=== PATIENT | male | born 1980 ===

== ENCOUNTER 2018-02-10 11:23 | Observation (INO) | payer BC ==
[2018-02-10] MEDS ORDERED: Sodium Chloride 0.9% 2.5 ML Syringe FLUSH PRN (11:34)
[2018-02-10] MEDS ORDERED: Sodium Chloride 0.9% 10 ML Syringe FLUSH PRN (11:34)
--- NOTE | 2018-02-10 11:43 | EDM.PDOC ---
ED HPI GENERAL MEDICAL PROBLEM - General Chief Complaint: Neuro Symptoms/Deficits Stated Complaint: TALK TO NURSE ABOUT ISSUES Time Seen by Provider: 02/10/18 11:27 - History of Present Illness INITIAL COMMENTS - FREE TEXT/NARRATIVE: HISTORY AND PHYSICAL: History of present illness: Patient is a 37-year-old white male who is 3 years status post craniotomy for a malignant neoplasm for which he received chemotherapy and radiation states he has been cancer free since who comes in now with progressive symptoms in the form of numbness and occasional difficulty concentrating and confusion he had an episode today per his brother of chest discomfort and shortness of breath patient is vague about the circumstances of this episode and denies any chest pain or shortness of breath now but does still complain of the paresthesia on his right side which is been there for months and for which he is scheduled to have an MRI this week. Review of systems: As per history of present illness and below otherwise all systems reviewed and negative. Past medical history: As per history of present illness and as reviewed below otherwise noncontributory. Surgical history: As per history of present illness and as reviewed below otherwise noncontributory. Social history: No reported history of drug or alcohol abuse. Family history: As per history of present illness and as reviewed below otherwise noncontributory. Physical exam: HEENT: Atraumatic, normocephalic, pupils reactive, negative for conjunctival pallor or scleral icterus, mucous membranes moist, throat clear, neck supple, nontender, trachea midline. Lungs: Clear to auscultation, breath sounds equal bilaterally, chest nontender. Heart: S1S2, regular, negative for clicks, rubs, or JVD. Abdomen: Soft, nondistended, nontender. Negative for masses or hepatosplenomegaly. Negative for costovertebral tenderness. Pelvis: Stable nontender. Genitourinary: Deferred. Rectal: Deferred. Extremities: Atraumatic, negative for cords or calf pain. Neurovascular unremarkable. Neuro: Awake, alert, oriented. Cranial nerves II through XII unremarkable. Cerebellum unremarkable. Motor and sensory unremarkable throughout. Exam nonfocal. Diagnostics: CBC CMP troponin PT/INR urine drug screen EtOH chest x-ray EKG CT brain Therapeutics: IV O2 monitor Impression: #1 atypical chest pain #2 history of intracranial neoplasm with subsequent craniotomy radiation/chemotherapy #3 right sided hemiparesthesia 2-3 months etiology to be determined #4 history of intermittent mental status changes Definitive disposition and diagnosis as appropriate pending reevaluation and review of above. - Related Data Allergies Allergy/AdvReac Type Severity Reaction Status Date / Time No Known Allergies Allergy Verified 09/10/13 10:10 Home Meds: Home Meds Amphetamine Sulfate [Evekeo] 5 mg DAILY 02/10/18 [History] Citalopram [Citalopram HBr] 20 mg DAILY 02/10/18 [History] ED ROS GENERAL - Review of Systems Review Of Systems: ROS reveals no pertinent complaints other than HPI. ED EXAM, GENERAL - Physical Exam Exam: See Below (See dictation) Course - Vital Signs Last Recorded V/S: Last Vital Signs Temp 36.5 C 02/10/18 12:45 Pulse 64 02/10/18 12:45 Resp 14 02/10/18 12:45 BP 108/62 02/10/18 12:45 Pulse Ox 96 02/10/18 12:45 - Orders/Labs/Meds Orders: Active Orders 24 hr Category Date Time Status Cardiac Monitoring [RC] . DIRECTED Care 02/10/18 11:33 Active EKG Documentation Completion [RC] STAT Care 02/10/18 11:33 Active Chest 1V Frontal [CR] Stat Exams 02/10/18 11:34 Taken Head wo Cont [CT] Stat Exams 02/10/18 11:34 Taken DRUG SCREEN, URINE [URCHEM] Stat Lab 02/10/18 11:46 Ordered UA W/MICROSCOPIC [URIN] Stat Lab 02/10/18 11:46 Ordered Sodium Chloride 0.9% [Normal Saline] 1,000 ml Med 02/10/18 11:45 Active IV STAT Sodium Chloride 0.9% [Saline Flush] Med 02/10/18 11:34 Active 10 ml FLUSH ASDIRECTED PRN Sodium Chloride 0.9% [Saline Flush] Med 02/10/18 11:34 Active 2.5 ml FLUSH ASDIRECTED PRN Saline Lock Insert [OM.PC] Stat Oth 02/10/18 11:33 Ordered Medication Orders Sodium Chloride (Normal Saline) 1,000 mls @ 125 mls/hr IV STAT JAGDEEP Last Admin: 02/10/18 11:57 Dose: 125 mls/hr Sodium Chloride (Saline Flush) 10 ml FLUSH ASDIRECTED PRN PRN Reason: Keep Vein Open Sodium Chloride (Saline Flush) 2.5 ml FLUSH ASDIRECTED PRN PRN Reason: Keep Vein Open Labs: Laboratory Tests 02/10/18 02/10/18 02/10/18 Range/Units 11:46 11:46 11:46 WBC 5.59 (4.0-11.0) K/uL RBC 5.04 (4.50-5.90) M/uL Hgb 16.0 (13.0-17.0) g/dL Hct 44.7 (38.0-50.0) % MCV 88.7 (80.0-98.0) fL MCH 31.7 (27.0-32.0) pg MCHC 35.8 (31.0-37.0) g/dL RDW Std Deviation 39.4 (28.0-62.0) fl RDW Coeff of Paolo 12 (11.0-15.0) % Plt Count 277 (150-400) K/uL MPV 9.80 (7.40-12.00) fL Neut % (Auto) 64.0 (48.0-80.0) % Lymph % (Auto) 24.2 (16.0-40.0) % [place] % (Auto) 9.5 (0.0-15.0) % Eos % (Auto) 1.8 (0.0-7.0) % Baso % (Auto) 0.5 (0.0-1.5) % Neut # (Auto) 3.6 (1.4-5.7) K/uL Lymph # (Auto) 1.4 (0.6-2.4) K/uL [place] # (Auto) 0.5 (0.0-0.8) K/uL Eos # (Auto) 0.1 (0.0-0.7) K/uL Baso # (Auto) 0.0 (0.0-0.1) K/uL Nucleated RBC % 0.0 /100WBC Nucleated RBCs # 0 K/uL INR Sodium (136-148) mmol/L Potassium (3.5-5.1) mmol/L Chloride (98-107) mmol/L Carbon Dioxide (21.0-32.0) mmol/L BUN (7.0-18.0) mg/dL Creatinine (0.8-1.3) mg/dL Est Cr Clr Drug Dosing Estimated GFR (MDRD) ml/min Glucose (74-106) mg/dL Calcium (8.5-10.1) mg/dL Total Bilirubin (0.2-1.0) mg/dL AST (15-37) IU/L ALT (14-63) IU/L Alkaline Phosphatase (46-116) U/L Troponin I (0.000-0.056) ng/mL Total Protein (6.4-8.2) g/dL Albumin (3.4-5.0) g/dL Globulin (2.0-3.5) g/dL Albumin/Globulin Ratio (1.3-2.8) Urine Color YELLOW Urine Appearance CLEAR Urine pH 7.0 (5.0-8.0) Ur Specific [place] 1.020 (1.001-1.035) Urine Protein NEGATIVE (NEGATIVE) mg/dL Urine Glucose (UA) NEGATIVE (NEGATIVE) mg/dL Urine Ketones NEGATIVE (NEGATIVE) mg/dL Urine Occult Blood NEGATIVE (NEGATIVE) Urine Nitrite NEGATIVE (NEGATIVE) Urine Bilirubin NEGATIVE (NEGATIVE) Urine Urobilinogen 0.2 (<2.0) EU/dL Ur Leukocyte Esterase NEGATIVE (NEGATIVE) Urine RBC 0-1 (0-2/HPF) Urine WBC 0-1 (0-5/HPF) Ur Epithelial Cells RARE (NONE-FEW) Urine Bacteria RARE (NEGATIVE) Urine Mucus LIGHT (NONE-MOD) Urine Opiates Screen NEGATIVE (NEGATIVE) Ur Oxycodone Screen NEGATIVE (NEGATIVE) Urine Methadone Screen NEGATIVE (NEGATIVE) Ur Barbiturates Screen NEGATIVE (NEGATIVE) Ur Phencyclidine Scrn NEGATIVE (NEGATIVE) Ur Amphetamine Screen NEGATIVE (NEGATIVE) U Methamphetamines Scrn NEGATIVE (NEGATIVE) U Benzodiazepines Scrn NEGATIVE (NEGATIVE) U Cocaine Metab Screen NEGATIVE (NEGATIVE) U Marijuana (THC) Screen NEGATIVE (NEGATIVE) Ethyl Alcohol mg/dL 02/10/18 02/10/18 Range/Units 11:46 11:46 WBC (4.0-11.0) K/uL RBC (4.50-5.90) M/uL Hgb (13.0-17.0) g/dL Hct (38.0-50.0) % MCV (80.0-98.0) fL MCH (27.0-32.0) pg MCHC (31.0-37.0) g/dL RDW Std Deviation (28.0-62.0) fl RDW Coeff of Paolo (11.0-15.0) % Plt Count (150-400) K/uL MPV (7.40-12.00) fL Neut % (Auto) (48.0-80.0) % Lymph % (Auto) (16.0-40.0) % [place] % (Auto) (0.0-15.0) % Eos % (Auto) (0.0-7.0) % Baso % (Auto) (0.0-1.5) % Neut # (Auto) (1.4-5.7) K/uL Lymph # (Auto) (0.6-2.4) K/uL [place] # (Auto) (0.0-0.8) K/uL Eos # (Auto) (0.0-0.7) K/uL Baso # (Auto) (0.0-0.1) K/uL Nucleated RBC % /100WBC Nucleated RBCs # K/uL INR 1.00 Sodium 139 (136-148) mmol/L Potassium 4.3 (3.5-5.1) mmol/L Chloride 103 (98-107) mmol/L Carbon Dioxide 26.8 (21.0-32.0) mmol/L BUN 12 (7.0-18.0) mg/dL Creatinine 1.0 (0.8-1.3) mg/dL Est Cr Clr Drug Dosing TNP Estimated GFR (MDRD) > 60.0 ml/min Glucose 106 (74-106) mg/dL Calcium 9.1 (8.5-10.1) mg/dL Total Bilirubin 1.0 (0.2-1.0) mg/dL AST 19 (15-37) IU/L ALT 44 (14-63) IU/L Alkaline Phosphatase 102 (46-116) U/L Troponin I < 0.050 (0.000-0.056) ng/mL Total Protein 7.6 (6.4-8.2) g/dL Albumin 4.1 (3.4-5.0) g/dL Globulin 3.5 (2.0-3.5) g/dL Albumin/Globulin Ratio 1.2 L (1.3-2.8) Urine Color Urine Appearance Urine pH (5.0-8.0) Ur Specific [place] (1.001-1.035) Urine Protein (NEGATIVE) mg/dL Urine Glucose (UA) (NEGATIVE) mg/dL Urine Ketones (NEGATIVE) mg/dL Urine Occult Blood (NEGATIVE) Urine Nitrite (NEGATIVE) Urine Bilirubin (NEGATIVE) Urine Urobilinogen (<2.0) EU/dL Ur Leukocyte Esterase (NEGATIVE) Urine RBC (0-2/HPF) Urine WBC (0-5/HPF) Ur Epithelial Cells (NONE-FEW) Urine Bacteria (NEGATIVE) Urine Mucus (NONE-MOD) Urine Opiates Screen (NEGATIVE) Ur Oxycodone Screen (NEGATIVE) Urine Methadone Screen (NEGATIVE) Ur Barbiturates Screen (NEGATIVE) Ur Phencyclidine Scrn (NEGATIVE) Ur Amphetamine Screen (NEGATIVE) U Methamphetamines Scrn (NEGATIVE) U Benzodiazepines Scrn (NEGATIVE) U Cocaine Metab Screen (NEGATIVE) U Marijuana (THC) Screen (NEGATIVE) Ethyl Alcohol <3 mg/dL Meds: Medications Generic Name Dose Route Start Last Admin Trade Name Freq PRN Reason Stop Dose Admin Sodium Chloride 1,000 mls @ 125 mls/hr 02/10/18 11:45 02/10/18 11:57 Normal Saline IV 125 mls/hr STAT JAGDEEP Administration Sodium Chloride 10 ml 02/10/18 11:34 Saline Flush FLUSH ASDIRECTED PRN Keep Vein Open Sodium Chloride 2.5 ml 02/10/18 11:34 Saline Flush FLUSH ASDIRECTED PRN Keep Vein Open Departure - Departure Time of Disposition: 13:12 Disposition: Refer to Observation Condition: Good Clinical Impression: Atypical chest pain, Paresthesia - Discharge Information Referrals: PCP,None [Primary Care Provider] - Forms: ED Department Discharge - My Orders Last 24 Hours: My Active Orders 02/10/18 11:33 Cardiac Monitoring [RC] . DIRECTED EKG Documentation Completion [RC] STAT Saline Lock Insert [OM.PC] Stat 02/10/18 11:34 Chest 1V Frontal [CR] Stat Head wo Cont [CT] Stat Sodium Chloride 0.9% [Saline Flush] 10 ml FLUSH ASDIRECTED PRN Sodium Chloride 0.9% [Saline Flush] 2.5 ml FLUSH ASDIRECTED PRN 02/10/18 11:45 Sodium Chloride 0.9% [Normal Saline] 1,000 ml IV STAT 02/10/18 11:46 DRUG SCREEN, URINE [URCHEM] Stat UA W/MICROSCOPIC [URIN] Stat - Assessment/Plan Last 24 Hours: My Active Orders 02/10/18 11:33 Cardiac Monitoring [RC] . DIRECTED EKG Documentation Completion [RC] STAT Saline Lock Insert [OM.PC] Stat 02/10/18 11:34 Chest 1V Frontal [CR] Stat Head wo Cont [CT] Stat Sodium Chloride 0.9% [Saline Flush] 10 ml FLUSH ASDIRECTED PRN Sodium Chloride 0.9% [Saline Flush] 2.5 ml FLUSH ASDIRECTED PRN 02/10/18 11:45 Sodium Chloride 0.9% [Normal Saline] 1,000 ml IV STAT 02/10/18 11:46 DRUG SCREEN, URINE [URCHEM] Stat UA W/MICROSCOPIC [URIN] Stat
[2018-02-10] MEDS ORDERED: Sodium Chloride 0.9% 1,000 ML IV SCH (11:45)
[2018-02-10 12:33] LABS: CHLORIDE,CL 103 mmol/L (98-107); SODIUM,NA 139 mmol/L (136-148)
--- NOTE | 2018-02-10 22:00 | PCM.HP ---
H&P History of Present Illness - General Date of Service: 02/10/18 Admit Problem/Dx: Admission Diagnosis/Problem Admission Diagnosis/Problem Atypical chest pain - History of Present Illness Initial Comments - Free Text/Narative: 37 yo male with pmh of craniotomy for malignant neoplasm s/p radiation and chemotherapy. PAtient states that since treatment he has had poor memory. The past week he has had numbness of the right arm and blurred vision. He is schedualed for a MRI of the brain next week for these symptoms. He is brought in by his brother today due to episode of chest pain and shortness of breath. CT of the head showed left frontal temporoparietal craniotomy with encephalomalacia in the left temporal lobe anteriorly. Vague low-density areas invovle the left internal capsule posteriorly, left thalamus and left midbrain. ED provider recommended observation for chest pain. Patient does not have any recollection of having chest pain and is unable to recall what happened during the time his brother said that he had chest pain. no pain Pain Score (Numeric/FACES): 0 - Related Data Allergies/Adverse Reactions: Allergies Allergy/AdvReac Type Severity Reaction Status Date / Time No Known Allergies Allergy Verified 02/10/18 14:02 Home Medications: Home Meds Amphetamine Sulfate [Evekeo] 5 mg DAILY 02/10/18 [History] Citalopram [Citalopram HBr] 20 mg DAILY 02/10/18 [History] Past Medical History HEENT History: Reports: Other (See Below) Other HEENT History: brain CA Cardiovascular History: Reports: None Respiratory History: Reports: None Gastrointestinal History: Reports: None Genitourinary History: Reports: None Musculoskeletal History: Reports: None Neurological History: Reports: Other (See Below) Other Neuro History: brain CA Psychiatric History: Reports: Depression Endocrine/Metabolic History: Reports: None Oncologic (Cancer) History: Reports: Brain Dermatologic History: Reports: None, Other (See Below) Other Dermatologic History: shingles 2015 to right side - Infectious Disease History Infectious Disease History: Reports: Chicken Pox, Shingles - Past Surgical History HEENT Surgical History: Reports: Tonsillectomy, Other (See Below) Other HEENT Surgeries/Procedures: brain tumor removal GI Surgical History: Reports: Hernia, Abdominal Oncologic Surgical History: Reports: Other (See Below) Other Oncologic Surgeries/Procedures: Brain tumor removal. Social & Family History - Family History Family Medical History: Noncontributory - Tobacco Use Smoking Status *Q: Current Every Day Smoker Years of Tobacco use: 20 Packs/Tins Daily: 2 Used Tobacco, but Quit: No Second Hand Smoke Exposure: No - Caffeine Use Caffeine Use: Reports: Coffee, Soda - Recreational Drug Use Recreational Drug Use: No H&P Review of Systems - Review of Systems: Review Of Systems: ROS reveals no pertinent complaints other than HPI. Exam - Exam Exam: See Below - Vital Signs Vital Signs: Last Vital Signs Temp 36.1 C 02/10/18 20:00 Pulse 74 02/10/18 20:00 Resp 18 02/10/18 20:00 BP 107/61 02/10/18 20:00 Pulse Ox 97 02/10/18 20:00 Weight: 90.718 kg - Exam General: Alert, Oriented HEENT: Conjunctiva Clear, Mucosa Moist & [place] Neck: Supple, Trachea Midline Lungs: Clear to Auscultation, Normal Respiratory Effort Cardiovascular: Regular Rate, Regular Rhythm GI/Abdominal Exam: Soft, Non-Tender Extremities: Non-Tender, No Pedal Edema Skin: Warm, Dry, Intact Neurological: Cranial Nerves Intact, Reflexes Equal Bilateral, Strength Equal Bilateral, Normal Speech, Normal Tone, Sensation Intact. No: Focal Deficit - Patient Data Lab Results Last 24 hrs: Laboratory Results - last 24 hr 02/10/18 02/10/18 02/10/18 Range/Units 11:46 11:46 11:46 WBC 5.59 (4.0-11.0) K/uL RBC 5.04 (4.50-5.90) M/uL Hgb 16.0 (13.0-17.0) g/dL Hct 44.7 (38.0-50.0) % MCV 88.7 (80.0-98.0) fL MCH 31.7 (27.0-32.0) pg MCHC 35.8 (31.0-37.0) g/dL RDW Std Deviation 39.4 (28.0-62.0) fl RDW Coeff of Paolo 12 (11.0-15.0) % Plt Count 277 (150-400) K/uL MPV 9.80 (7.40-12.00) fL Neut % (Auto) 64.0 (48.0-80.0) % Lymph % (Auto) 24.2 (16.0-40.0) % [place] % (Auto) 9.5 (0.0-15.0) % Eos % (Auto) 1.8 (0.0-7.0) % Baso % (Auto) 0.5 (0.0-1.5) % Neut # (Auto) 3.6 (1.4-5.7) K/uL Lymph # (Auto) 1.4 (0.6-2.4) K/uL [place] # (Auto) 0.5 (0.0-0.8) K/uL Eos # (Auto) 0.1 (0.0-0.7) K/uL Baso # (Auto) 0.0 (0.0-0.1) K/uL Nucleated RBC % 0.0 /100WBC Nucleated RBCs # 0 K/uL INR Sodium (136-148) mmol/L Potassium (3.5-5.1) mmol/L Chloride (98-107) mmol/L Carbon Dioxide (21.0-32.0) mmol/L BUN (7.0-18.0) mg/dL Creatinine (0.8-1.3) mg/dL Est Cr Clr Drug Dosing Estimated GFR (MDRD) ml/min Glucose (74-106) mg/dL Calcium (8.5-10.1) mg/dL Total Bilirubin (0.2-1.0) mg/dL AST (15-37) IU/L ALT (14-63) IU/L Alkaline Phosphatase (46-116) U/L Troponin I (0.000-0.056) ng/mL Total Protein (6.4-8.2) g/dL Albumin (3.4-5.0) g/dL Globulin (2.0-3.5) g/dL Albumin/Globulin Ratio (1.3-2.8) Urine Color YELLOW Urine Appearance CLEAR Urine pH 7.0 (5.0-8.0) Ur Specific [place] 1.020 (1.001-1.035) Urine Protein NEGATIVE (NEGATIVE) mg/dL Urine Glucose (UA) NEGATIVE (NEGATIVE) mg/dL Urine Ketones NEGATIVE (NEGATIVE) mg/dL Urine Occult Blood NEGATIVE (NEGATIVE) Urine Nitrite NEGATIVE (NEGATIVE) Urine Bilirubin NEGATIVE (NEGATIVE) Urine Urobilinogen 0.2 (<2.0) EU/dL Ur Leukocyte Esterase NEGATIVE (NEGATIVE) Urine RBC 0-1 (0-2/HPF) Urine WBC 0-1 (0-5/HPF) Ur Epithelial Cells RARE (NONE-FEW) Urine Bacteria RARE (NEGATIVE) Urine Mucus LIGHT (NONE-MOD) Urine Opiates Screen NEGATIVE (NEGATIVE) Ur Oxycodone Screen NEGATIVE (NEGATIVE) Urine Methadone Screen NEGATIVE (NEGATIVE) Ur Barbiturates Screen NEGATIVE (NEGATIVE) Ur Phencyclidine Scrn NEGATIVE (NEGATIVE) Ur Amphetamine Screen NEGATIVE (NEGATIVE) U Methamphetamines Scrn NEGATIVE (NEGATIVE) U Benzodiazepines Scrn NEGATIVE (NEGATIVE) U Cocaine Metab Screen NEGATIVE (NEGATIVE) U Marijuana (THC) Screen NEGATIVE (NEGATIVE) Ethyl Alcohol mg/dL 02/10/18 02/10/18 02/10/18 Range/Units 11:46 11:46 18:07 WBC (4.0-11.0) K/uL RBC (4.50-5.90) M/uL Hgb (13.0-17.0) g/dL Hct (38.0-50.0) % MCV (80.0-98.0) fL MCH (27.0-32.0) pg MCHC (31.0-37.0) g/dL RDW Std Deviation (28.0-62.0) fl RDW Coeff of [place] (11.0-15.0) % Plt Count (150-400) K/uL MPV (7.40-12.00) fL Neut % (Auto) (48.0-80.0) % Lymph % (Auto) (16.0-40.0) % [place] % (Auto) (0.0-15.0) % Eos % (Auto) (0.0-7.0) % Baso % (Auto) (0.0-1.5) % Neut # (Auto) (1.4-5.7) K/uL Lymph # (Auto) (0.6-2.4) K/uL [place] # (Auto) (0.0-0.8) K/uL Eos # (Auto) (0.0-0.7) K/uL Baso # (Auto) (0.0-0.1) K/uL Nucleated RBC % /100WBC Nucleated RBCs # K/uL INR 1.00 Sodium 139 (136-148) mmol/L Potassium 4.3 (3.5-5.1) mmol/L Chloride 103 (98-107) mmol/L Carbon Dioxide 26.8 (21.0-32.0) mmol/L BUN 12 (7.0-18.0) mg/dL Creatinine 1.0 (0.8-1.3) mg/dL Est Cr Clr Drug Dosing TNP Estimated GFR (MDRD) > 60.0 ml/min Glucose 106 (74-106) mg/dL Calcium 9.1 (8.5-10.1) mg/dL Total Bilirubin 1.0 (0.2-1.0) mg/dL AST 19 (15-37) IU/L ALT 44 (14-63) IU/L Alkaline Phosphatase 102 (46-116) U/L Troponin I < 0.050 < 0.050 (0.000-0.056) ng/mL Total Protein 7.6 (6.4-8.2) g/dL Albumin 4.1 (3.4-5.0) g/dL Globulin 3.5 (2.0-3.5) g/dL Albumin/Globulin Ratio 1.2 L (1.3-2.8) Urine Color Urine Appearance Urine pH (5.0-8.0) Ur Specific [place] (1.001-1.035) Urine Protein (NEGATIVE) mg/dL Urine Glucose (UA) (NEGATIVE) mg/dL Urine Ketones (NEGATIVE) mg/dL Urine Occult Blood (NEGATIVE) Urine Nitrite (NEGATIVE) Urine Bilirubin (NEGATIVE) Urine Urobilinogen (<2.0) EU/dL Ur Leukocyte Esterase (NEGATIVE) Urine RBC (0-2/HPF) Urine WBC (0-5/HPF) Ur Epithelial Cells (NONE-FEW) Urine Bacteria (NEGATIVE) Urine Mucus (NONE-MOD) Urine Opiates Screen (NEGATIVE) Ur Oxycodone Screen (NEGATIVE) Urine Methadone Screen (NEGATIVE) Ur Barbiturates Screen (NEGATIVE) Ur Phencyclidine Scrn (NEGATIVE) Ur Amphetamine Screen (NEGATIVE) U Methamphetamines Scrn (NEGATIVE) U Benzodiazepines Scrn (NEGATIVE) U Cocaine Metab Screen (NEGATIVE) U Marijuana (THC) Screen (NEGATIVE) Ethyl Alcohol <3 mg/dL Result Diagrams: 02/10/18 11:46 02/10/18 11:46 Problem List Initiated/Reviewed/Updated: Yes Orders Last 24hrs: Active Orders 24 hr Category Date Time Status Patient Status [ADT] Stat ADT 02/10/18 13:12 Active Cardiac Monitoring [RC] . DIRECTED Care 02/10/18 11:33 Active Telemetry Monitoring [Cardiac Monitoring] [RC] . Care 02/10/18 15:48 Active DIRECTED Regular Diet [DIET] Diet 02/10/18 Dinner Active Brain w Cont [MR] Routine Exams 02/10/18 21:50 Ordered Chest 1V Frontal [CR] Stat Exams 02/10/18 11:34 Taken Head wo Cont [CT] Stat Exams 02/10/18 11:34 Taken DRUG SCREEN, URINE [URCHEM] Stat Lab 02/10/18 11:46 Ordered TROPONIN I [CHEM] Routine Lab 02/11/18 00:00 Ordered UA W/MICROSCOPIC [URIN] Stat Lab 02/10/18 11:46 Ordered Sodium Chloride 0.9% [Saline Flush] Med 02/10/18 11:34 Active 10 ml FLUSH ASDIRECTED PRN Sodium Chloride 0.9% [Saline Flush] Med 02/10/18 11:34 Active 2.5 ml FLUSH ASDIRECTED PRN Saline Lock Insert [OM.PC] Stat Oth 02/10/18 11:33 Ordered Medication Orders Sodium Chloride (Saline Flush) 10 ml FLUSH ASDIRECTED PRN PRN Reason: Keep Vein Open Sodium Chloride (Saline Flush) 2.5 ml FLUSH ASDIRECTED PRN PRN Reason: Keep Vein Open Assessment/Plan Comment:: 37 yo male admitted for chest pain. We will monitor on telemetry. We will trend cardiac enzymes. If available will get MRI brain for his subacute neurological symptoms.
[2018-02-11 08:35] VITALS: BP 125/76
--- NOTE | 2018-02-11 09:23 | CT ---
EXAM DATE: 02/10/18 PATIENT'S AGE: 37 Patient: BETSEY ARMENDARIZ Facility: [place], [place] Site . Site : 1980 Study: CT Head wo cont [id number]/3/2018 12:17:45 PM Ordering Physician: Caitlyn Sanchez Final Report: INDICATION: PAIN. PT STATES NOT FEELING RIGHT TODAY. CONFUSION, BLURRED VISION, RIGHT SIDED NUMBNESS. PT STATES HX OF BRAIN CANCER. TECHNIQUE: Noncontrast scans obtained from the foramen magnum through the vertex. COMPARISON: MRI of the brain 05/16/2017. FINDINGS: 1. Left frontal temporoparietal craniotomy with encephalomalacia in the left temporal lobe anteriorly. 2. Adjacent to this in the left posterior internal capsule, left thalamus and left midbrain, there is vague lower density. Although some of this could represent encephalomalacia, given the history of prior brain neoplasm, findings are concerning for recurrent neoplasm. Recent nonhemorrhagic infarct would also be in the differential. 3. No evidence for intracranial hemorrhage or midline shift. Ventricles are normal size. 4. Visualized paranasal sinuses and mastoid air cells are clear. IMPRESSION: Postoperative changes and encephalomalacia on the left. Vague low-density areas involving the left internal capsule posteriorly, left thalamus and left midbrain. Possibility of recurrent neoplasm cannot be excluded. Recommend further evaluation with contrast MRI exam. Dictated by Alvin Barreto MD @ 02/10/2018 1:11:12 PM Dictated by: Alvin Barreto MD @ 02/10/2018 13:11:17 (Electronic Signature) Report Signed by Proxy. KHANH
--- NOTE | 2018-02-11 09:24 | CR ---
EXAM DATE: 02/10/18 PATIENT'S AGE: 37 Patient: BETSEY ARMENDARIZ Facility: [place], [place] Site . Site : 1980 Study: XRay Chest [id number]/3/[id number] 12:17:47 PM Ordering Physician: Caitlyn Sanchez Final Report: HISTORY: Chest pain and [id number]. FINDINGS: Single PA view of the chest is provided. The lungs are clear and there is no evidence for pleural effusion or pneumothorax. Cardiac silhouette size is within normal limits. Dictated by Eliazar Kong MD @ Feb 10 2018 1:03PM (Electronic Signature) Report Signed by Proxy. KHANH
--- NOTE | 2018-02-11 10:44 | PCM.DCSUM1 ---
<Vaishali Huynh - Last Filed: 02/11/18 10:36> Discharge Summary - Hospital Course Free Text/Narrative:: Admission Date: 02/10/18 Discharge Date: 02/11/18 Admission Diagnosis: 1. Chest Pain- ACS rule out 2. Right sided arm numbness Discharge Diagnosis: 1. Chest pain- ACS ruled out 2. Right sided arm numbness in patient with hx of brain neoplasm Procedures: None Consults: None Hospital Course: The patient is a 37-year-old male who presented to the ER with chest pain and right sided arm numbness. The patient has a history of malignant neoplasm, status post craniotomy. He has had this right sided arm numbness for weeks now without weakness. The patient complained of chest pain to his brother but does not remember having episodes of chest pain. In the ER workup included CBC, CMP, which were within normal limits, and a negative troponin, PT/INR within normal limits, negative drug screen, EKG that did not show any ST elevations. Chest x-ray was done which showed no acute cardiopulmonary processes. Head CT did show postop changes, encephalomalacia on the left side with low density areas involving the left internal capsule posteriorly, left thalamus, and left midbrain. Patient was admitted for observation and his troponins were trended. His troponins were negative 3 and he had no episodes of chest pain while admitted. For the right-sided numbness, a MRI was ordered. The MRI was going to be completed later this evening or tomorrow morning. The patient didn't want to wait. He does have an MRI scheduled at an outpatient next week. He preferred to be discharged and follow- up as an outpatient. Disposition: Home Discharge Condition: Stable, vitals stable, tolerating oral diet, no further episodes of chest pain Discharge Instructions: Regular diet, activity as tolerated. Symptoms to report include chest pain, shortness of breath, abdominal pain, numbness/ weakness in extremities, changes in memory, headache. Discharge Medications: Continue Home medications: Amphetamine Sulfate [Evekeo] 5 mg DAILY Citalopram [Citalopram HBr] 20 mg DAILY Follow-up: Dr. Lloyd, PCP, on 02/24. Keep appt for outpatient MRI next week. Diagnosis: Stroke: No - Discharge Data Discharge Date: 02/11/18 Discharge Disposition: Home, Self-Care 01 Condition: Stable - Patient Instructions Diet: Regular Diet as Tolerated Activity: As Tolerated Showering/Bathing: May Shower Notify Provider of: Fever, Increased Pain, Swelling and Redness, Drainage, Nausea and/or Vomiting Other/Special Instructions: Additional symptoms include chest pain, shortness of breath, extremity weakness, memory issues, or headache. Follow up with scheduled outpatient MRI. - Discharge Plan Home Medications: Home Meds Amphetamine Sulfate [Evekeo] 5 mg DAILY 02/10/18 [History] Citalopram [Citalopram HBr] 20 mg DAILY 02/10/18 [History] Patient Handouts: Nonspecific Chest Pain, [id number] Referrals: [facility] [Outside] Pranav Lloyd MD [Resident] - 02/24/18 9:30 am - Patient Data Vitals - Most Recent: Last Vital Signs Temp 97.6 F 02/11/18 08:00 Pulse 75 02/11/18 08:00 Resp 18 02/11/18 08:00 BP 125/76 02/11/18 08:00 Pulse Ox 94 L 02/11/18 08:00 Weight - Most Recent: 90.718 kg I&O - Last 24 hours: Intake & Output 02/10/18 02/11/18 02/11/18 22:59 06:59 14:59 Intake Total 1050 150 Output Total 450 950 Balance 600 -800 Lab Results - Last 24 hrs: Laboratory Results - last 24 hr 02/10/18 02/10/18 02/10/18 Range/Units 11:46 11:46 11:46 WBC 5.59 (4.0-11.0) K/uL RBC 5.04 (4.50-5.90) M/uL Hgb 16.0 (13.0-17.0) g/dL Hct 44.7 (38.0-50.0) % MCV 88.7 (80.0-98.0) fL MCH 31.7 (27.0-32.0) pg MCHC 35.8 (31.0-37.0) g/dL RDW Std Deviation 39.4 (28.0-62.0) fl RDW Coeff of Paolo 12 (11.0-15.0) % Plt Count 277 (150-400) K/uL MPV 9.80 (7.40-12.00) fL Neut % (Auto) 64.0 (48.0-80.0) % Lymph % (Auto) 24.2 (16.0-40.0) % Wayne % (Auto) 9.5 (0.0-15.0) % Eos % (Auto) 1.8 (0.0-7.0) % Baso % (Auto) 0.5 (0.0-1.5) % Neut # (Auto) 3.6 (1.4-5.7) K/uL Lymph # (Auto) 1.4 (0.6-2.4) K/uL Wayne # (Auto) 0.5 (0.0-0.8) K/uL Eos # (Auto) 0.1 (0.0-0.7) K/uL Baso # (Auto) 0.0 (0.0-0.1) K/uL Nucleated RBC % 0.0 /100WBC Nucleated RBCs # 0 K/uL INR Sodium (136-148) mmol/L Potassium (3.5-5.1) mmol/L Chloride (98-107) mmol/L Carbon Dioxide (21.0-32.0) mmol/L BUN (7.0-18.0) mg/dL Creatinine (0.8-1.3) mg/dL Est Cr Clr Drug Dosing Estimated GFR (MDRD) ml/min Glucose (74-106) mg/dL Calcium (8.5-10.1) mg/dL Total Bilirubin (0.2-1.0) mg/dL AST (15-37) IU/L ALT (14-63) IU/L Alkaline Phosphatase (46-116) U/L Troponin I (0.000-0.056) ng/mL Total Protein (6.4-8.2) g/dL Albumin (3.4-5.0) g/dL Globulin (2.0-3.5) g/dL Albumin/Globulin Ratio (1.3-2.8) Urine Color YELLOW Urine Appearance CLEAR Urine pH 7.0 (5.0-8.0) Ur Specific [place] 1.020 (1.001-1.035) Urine Protein NEGATIVE (NEGATIVE) mg/dL Urine Glucose (UA) NEGATIVE (NEGATIVE) mg/dL Urine Ketones NEGATIVE (NEGATIVE) mg/dL Urine Occult Blood NEGATIVE (NEGATIVE) Urine Nitrite NEGATIVE (NEGATIVE) Urine Bilirubin NEGATIVE (NEGATIVE) Urine Urobilinogen 0.2 (<2.0) EU/dL Ur Leukocyte Esterase NEGATIVE (NEGATIVE) Urine RBC 0-1 (0-2/HPF) Urine WBC 0-1 (0-5/HPF) Ur Epithelial Cells RARE (NONE-FEW) Urine Bacteria RARE (NEGATIVE) Urine Mucus LIGHT (NONE-MOD) Urine Opiates Screen NEGATIVE (NEGATIVE) Ur Oxycodone Screen NEGATIVE (NEGATIVE) Urine Methadone Screen NEGATIVE (NEGATIVE) Ur Barbiturates Screen NEGATIVE (NEGATIVE) Ur Phencyclidine Scrn NEGATIVE (NEGATIVE) Ur Amphetamine Screen NEGATIVE (NEGATIVE) U Methamphetamines Scrn NEGATIVE (NEGATIVE) U Benzodiazepines Scrn NEGATIVE (NEGATIVE) U Cocaine Metab Screen NEGATIVE (NEGATIVE) U Marijuana (THC) Screen NEGATIVE (NEGATIVE) Ethyl Alcohol mg/dL 02/10/18 02/10/18 02/10/18 Range/Units 11:46 11:46 18:07 WBC (4.0-11.0) K/uL RBC (4.50-5.90) M/uL Hgb (13.0-17.0) g/dL Hct (38.0-50.0) % MCV (80.0-98.0) fL MCH (27.0-32.0) pg MCHC (31.0-37.0) g/dL RDW Std Deviation (28.0-62.0) fl RDW Coeff of Paolo (11.0-15.0) % Plt Count (150-400) K/uL MPV (7.40-12.00) fL Neut % (Auto) (48.0-80.0) % Lymph % (Auto) (16.0-40.0) % Wayne % (Auto) (0.0-15.0) % Eos % (Auto) (0.0-7.0) % Baso % (Auto) (0.0-1.5) % Neut # (Auto) (1.4-5.7) K/uL Lymph # (Auto) (0.6-2.4) K/uL Wayne # (Auto) (0.0-0.8) K/uL Eos # (Auto) (0.0-0.7) K/uL Baso # (Auto) (0.0-0.1) K/uL Nucleated RBC % /100WBC Nucleated RBCs # K/uL INR 1.00 Sodium 139 (136-148) mmol/L Potassium 4.3 (3.5-5.1) mmol/L Chloride 103 (98-107) mmol/L Carbon Dioxide 26.8 (21.0-32.0) mmol/L BUN 12 (7.0-18.0) mg/dL Creatinine 1.0 (0.8-1.3) mg/dL Est Cr Clr Drug Dosing TNP Estimated GFR (MDRD) > 60.0 ml/min Glucose 106 (74-106) mg/dL Calcium 9.1 (8.5-10.1) mg/dL Total Bilirubin 1.0 (0.2-1.0) mg/dL AST 19 (15-37) IU/L ALT 44 (14-63) IU/L Alkaline Phosphatase 102 (46-116) U/L Troponin I < 0.050 < 0.050 (0.000-0.056) ng/mL Total Protein 7.6 (6.4-8.2) g/dL Albumin 4.1 (3.4-5.0) g/dL Globulin 3.5 (2.0-3.5) g/dL Albumin/Globulin Ratio 1.2 L (1.3-2.8) Urine Color Urine Appearance Urine pH (5.0-8.0) Ur Specific [place] (1.001-1.035) Urine Protein (NEGATIVE) mg/dL Urine Glucose (UA) (NEGATIVE) mg/dL Urine Ketones (NEGATIVE) mg/dL Urine Occult Blood (NEGATIVE) Urine Nitrite (NEGATIVE) Urine Bilirubin (NEGATIVE) Urine Urobilinogen (<2.0) EU/dL Ur Leukocyte Esterase (NEGATIVE) Urine RBC (0-2/HPF) Urine WBC (0-5/HPF) Ur Epithelial Cells (NONE-FEW) Urine Bacteria (NEGATIVE) Urine Mucus (NONE-MOD) Urine Opiates Screen (NEGATIVE) Ur Oxycodone Screen (NEGATIVE) Urine Methadone Screen (NEGATIVE) Ur Barbiturates Screen (NEGATIVE) Ur Phencyclidine Scrn (NEGATIVE) Ur Amphetamine Screen (NEGATIVE) U Methamphetamines Scrn (NEGATIVE) U Benzodiazepines Scrn (NEGATIVE) U Cocaine Metab Screen (NEGATIVE) U Marijuana (THC) Screen (NEGATIVE) Ethyl Alcohol <3 mg/dL 09/04/18 Range/Units 00:12 WBC (4.0-11.0) K/uL RBC (4.50-5.90) M/uL Hgb (13.0-17.0) g/dL Hct (38.0-50.0) % MCV (80.0-98.0) fL MCH (27.0-32.0) pg MCHC (31.0-37.0) g/dL RDW Std Deviation (28.0-62.0) fl RDW Coeff of Paolo (11.0-15.0) % Plt Count (150-400) K/uL MPV (7.40-12.00) fL Neut % (Auto) (48.0-80.0) % Lymph % (Auto) (16.0-40.0) % Wayne % (Auto) (0.0-15.0) % Eos % (Auto) (0.0-7.0) % Baso % (Auto) (0.0-1.5) % Neut # (Auto) (1.4-5.7) K/uL Lymph # (Auto) (0.6-2.4) K/uL Wayne # (Auto) (0.0-0.8) K/uL Eos # (Auto) (0.0-0.7) K/uL Baso # (Auto) (0.0-0.1) K/uL Nucleated RBC % /100WBC Nucleated RBCs # K/uL INR Sodium (136-148) mmol/L Potassium (3.5-5.1) mmol/L Chloride (98-107) mmol/L Carbon Dioxide (21.0-32.0) mmol/L BUN (7.0-18.0) mg/dL Creatinine (0.8-1.3) mg/dL Est Cr Clr Drug Dosing Estimated GFR (MDRD) ml/min Glucose (74-106) mg/dL Calcium (8.5-10.1) mg/dL Total Bilirubin (0.2-1.0) mg/dL AST (15-37) IU/L ALT (14-63) IU/L Alkaline Phosphatase (46-116) U/L Troponin I < 0.050 (0.000-0.056) ng/mL Total Protein (6.4-8.2) g/dL Albumin (3.4-5.0) g/dL Globulin (2.0-3.5) g/dL Albumin/Globulin Ratio (1.3-2.8) Urine Color Urine Appearance Urine pH (5.0-8.0) Ur Specific [place] (1.001-1.035) Urine Protein (NEGATIVE) mg/dL Urine Glucose (UA) (NEGATIVE) mg/dL Urine Ketones (NEGATIVE) mg/dL Urine Occult Blood (NEGATIVE) Urine Nitrite (NEGATIVE) Urine Bilirubin (NEGATIVE) Urine Urobilinogen (<2.0) EU/dL Ur Leukocyte Esterase (NEGATIVE) Urine RBC (0-2/HPF) Urine WBC (0-5/HPF) Ur Epithelial Cells (NONE-FEW) Urine Bacteria (NEGATIVE) Urine Mucus (NONE-MOD) Urine Opiates Screen (NEGATIVE) Ur Oxycodone Screen (NEGATIVE) Urine Methadone Screen (NEGATIVE) Ur Barbiturates Screen (NEGATIVE) Ur Phencyclidine Scrn (NEGATIVE) Ur Amphetamine Screen (NEGATIVE) U Methamphetamines Scrn (NEGATIVE) U Benzodiazepines Scrn (NEGATIVE) U Cocaine Metab Screen (NEGATIVE) U Marijuana (THC) Screen (NEGATIVE) Ethyl Alcohol mg/dL Med Orders - Current: Current Medications Sodium Chloride (Saline Flush) 10 ml FLUSH ASDIRECTED PRN PRN Reason: Keep Vein Open Sodium Chloride (Saline Flush) 2.5 ml FLUSH ASDIRECTED PRN PRN Reason: Keep Vein Open Discontinued Medications Sodium Chloride (Normal Saline) 1,000 mls @ 125 mls/hr IV STAT JAGDEEP Last Infusion: 02/10/18 20:15 Dose: Infused <Hernan Cervantes J - Last Filed: 02/11/18 20:16> - Patient Data Vitals - Most Recent: Last Vital Signs Temp 36.4 C 02/11/18 08:00 Pulse 75 02/11/18 08:00 Resp 18 02/11/18 08:00 BP 125/76 02/11/18 08:00 Pulse Ox 94 L 02/11/18 08:00 I&O - Last 24 hours: Intake & Output 02/11/18 02/11/18 02/11/18 06:59 14:59 22:59 Intake Total 150 500 Output Total 950 450 Balance -800 50 Lab Results - Last 24 hrs: Laboratory Results - last 24 hr 02/11/18 Range/Units 00:12 Troponin I < 0.050 (0.000-0.056) ng/mL Med Orders - Current: Current Medications Discontinued Medications Sodium Chloride (Normal Saline) 1,000 mls @ 125 mls/hr IV STAT JAGDEEP Last Infusion: 02/10/18 20:15 Dose: Infused Sodium Chloride (Saline Flush) 10 ml FLUSH ASDIRECTED PRN PRN Reason: Keep Vein Open Sodium Chloride (Saline Flush) 2.5 ml FLUSH ASDIRECTED PRN PRN Reason: Keep Vein Open - Free Text/Narrative Note: I have examined patient. I have discussed findings and treatment plan with the resident. I agree with the assessment and plan in the following resident's note.
== END 2018-02-11 11:49 | disposition home or self-care (01) ==
LOC: MW.ED 11:23 → MW.MS 13:12
PROVIDERS: ADMIT Internal Medicine; ATTEND Internal Medicine
DX: R07.89 Other chest pain (principal); R20.2 Paresthesia of skin; C71.9 Malignant neoplasm of brain, unspecified; F32.9 Major depressive disorder, single episode, unspecified; F17.210 Nicotine dependence, cigarettes, uncomplicated; Z79.899 Other long term (current) drug therapy; Z92.21 Personal history of antineoplastic chemotherapy; Z92.3 Personal history of irradiation
CPT/HCPCS: 36415; 70450; 71045; 80053; 80305; 81001; 84484; 85025; 85610; 93005; 96360; 96361; 99285; G0480; J7040; G0378